=== PATIENT | female | born 1965 | race Caucasian/White ===

== ENCOUNTER 2019-04-28 13:41 | Emergency (ER) | payer OTHER, MEDICAID, SELFPAY ==
--- NOTE | ~2019-04-28 | XR_ITS ---
EXAMINATION: XR shoulder RT min 2V EXAM DATE: 04/28/2019 14:30 INDICATION: Fall, right shoulder pain. TECHNIQUE: The following right shoulder projections obtained: frontal projection with internal rotati on, frontal projection with external rotation, [place], and axillary (4+ views). There is no prior s tudy for comparison. FINDINGS: No evidence of right shoulder rotator cuff calcific tendinosis. There is mild right shou lder primary osteoarthritis. There are no acute fractures or dislocations identified. There is no velasco bcutaneous gas. The soft tissue is unremarkable. There are no radiopaque foreign bodies. IMPRESSION: No acute osseous findings. Reviewed, dictated and finalized at location A. T SPA DESK IMPRESSION: No acute osseous findings.
[2019-04-28 13:56] VITALS: BP 146/91; PULSE 108; RESP 18; TEMP 36.8; O2SAT 100
--- NOTE | 2019-04-28 14:09 | ED.UPPEXIN ---
HPI - Extremity Injury (Upper) General Chief Complaint: Extremity Injury, Upper Stated Complaint: Had Seizures and fell Time Seen by Provider: 04/28/19 14:20 Source: patient and RN notes reviewed Mode of arrival: ambulatory Limitations: no limitations History of Present Illness HPI narrative: 53 year old female who presents to express care with complaints of pain to the anterior aspect of her right shoulder after falling into her cabinet at home last pm, patient states that she just lost her balance denies any other injury at this time or LOC with shoulder injury. Patient states that has an unsteady gait due to previous strokes. Patient states that she was in [facility] last week after a fall in her bathroom where she fell directly into bathroom wall fracturing her nose, thinks she had what her neurologist called a syncopal seizure.. Patient states that she has history of partial epilepsy and last week she doesn't recall falling so family took her to ER at [facility] and she was admitted for a few days. Patient states that she has had problems with her shoulder before but pain was more in posterior aspect of shoulder. MD complaint: injury to: right and shoulder Other Extremity Injury: Right: shoulder Other injuries: none Handedness: right Place: home Relieving factors: rest Exacerbating factors: movement of extremity Context: fall and direct blow Associated symptoms: denies other symptoms Related Data Home Medications Medication Instructions Recorded Confirmed atorvastatin 40 mg PO DAILY 04/28/19 04/28/19 clonazepam [Klonopin] 1 mg PO BID 04/28/19 04/28/19 clopidogrel [Plavix] 75 mg PO DAILY 04/28/19 04/28/19 cyclobenzaprine 10 mg PO QID 04/28/19 04/28/19 duloxetine [Cymbalta] 90 mg PO QAM 04/28/19 04/28/19 lamotrigine [Lamictal] 300 mg PO BID 04/28/19 04/28/19 levothyroxine [Synthroid] 50 mcg PO DAILY 04/28/19 04/28/19 quetiapine [Seroquel] 300 mg PO BID 04/28/19 04/28/19 ramelteon 8 mg PO HS 04/28/19 04/28/19 sumatriptan succinate [Imitrex] 100 mg PO ONCE 04/28/19 04/28/19 thiamine HCl (vitamin B1) 50 mg PO DAILY 04/28/19 04/28/19 Allergies Allergy/AdvReac Type Severity Reaction Status Date / Time amphetamine Allergy Intermediate Unknown Verified 04/28/19 14:25 dextroamphetamine Allergy Intermediate Unknown Verified 04/28/19 14:05 Tetanus Vaccines and Toxoid Allergy Unknown Unknown Verified 04/28/19 14:05 ibuprofen [From Motrin] AdvReac Unknown Verified 04/28/19 14:23 Review of Systems Review of Systems: Narrative: CONSTITUTIONAL: Denies fever, chills, or sweats. EYES: Denies visual changes, redness, or discharge. ENT: Denies rhinorrhea, congestion, sore throat, or otalgia. CARDIOVASCULAR: Denies chest pain, palpitations, or edema. RESPIRATORY: Denies cough or dyspnea. GASTROINTESTINAL: Denies abdominal pain, nausea, vomiting, or diarrhea. GENITOURINARY: Denies dysuria or hematuria. SKIN: Denies rash or itching. MUSCULOSKELETAL: Denies back pain,positive right shoulder anterior aspect of right shoulder. or myalgia. NEUROLOGIC: Denies headache, numbness, or weakness. PSYCHIATRIC: Denies anxiety or depression. All systems reviewed & are unremarkable except as noted in HPI and below PMFSH Past Medical History Medical History (Updated 04/29/19 @ 00:00 by Bertin Daemon) Back pain Bipolar disorder CVA (cerebrovascular accident) Depression Epilepsy Hyperlipidemia Hypothyroid Migraines Pneumonia Social History Social History (Updated 04/28/19 @ 15:08 by Irena Berg NP) Living arrangements: alone Gender identity (if verbalized by the patient): Female Comments At time of signature, agree with nursing past medical, surgical, social and family history. There is no relevant family history pertinent to the presenting complaint Exam Narrative: Exam Narrative: GENERAL: Well-appearing, well-nourished, and in no acute distress. HEAD: Normocephalic, atraumatic. EYES: PERRLA and EOMI. ENT: Na
== END 2019-04-28 14:56 | disposition home or self-care (01) ==
PROVIDERS: Emergency Provider Registered Nurse; PCP Family Medicine
DX: M25.511 Pain in right shoulder (principal); Z86.73 Personal history of transient ischemic attack (TIA), and cerebral infarction without residual deficits; E78.5 Hyperlipidemia, unspecified; G40.909 Epilepsy, unspecified, not intractable, without status epilepticus; E03.9 Hypothyroidism, unspecified; F31.9 Bipolar disorder, unspecified
CPT/HCPCS: 73030; 99213; G0463

== ENCOUNTER 2019-05-14 08:01 | Emergency (ER) | payer OTHER, MEDICAID, SELFPAY ==
--- NOTE | 2019-05-14 08:05 | ED.GENADULT ---
HPI - General Adult General Stated complaint: Severe back pain Time Seen by Provider: 05/14/19 08:13 Source: patient Mode of arrival: ambulatory Limitations: no limitations History of Present Illness HPI narrative: 53-year-old female patient [facility] complaints of right upper back pain. Patient states that she fell about 10 days ago and had a seizure. Patient states that she has been in twice last week for some right shoulder pain. Did have an x-ray and there was no bone abnormalities. Patient states she developed some right upper back pain about 3 days ago. Patient states that she was taking Tylenol threes but ran out. Patient states she also has been taking muscle relaxants have been prescribed to her as well as doing heat. Patient denies any numbness or tingling to the extremities. Denies any loss bowel or bladder control. Related Data Home Medications Medication Instructions Recorded Confirmed atorvastatin 40 mg PO DAILY 04/28/19 04/28/19 clonazepam [Klonopin] 1 mg PO BID 04/28/19 04/28/19 clopidogrel [Plavix] 75 mg PO DAILY 04/28/19 04/28/19 cyclobenzaprine 10 mg PO QID 04/28/19 04/28/19 duloxetine [Cymbalta] 90 mg PO QAM 04/28/19 04/28/19 lamotrigine [Lamictal] 300 mg PO BID 04/28/19 04/28/19 levothyroxine [Synthroid] 50 mcg PO DAILY 04/28/19 04/28/19 quetiapine [Seroquel] 300 mg PO BID 04/28/19 04/28/19 ramelteon 8 mg PO HS 04/28/19 04/28/19 sumatriptan succinate [Imitrex] 100 mg PO ONCE 04/28/19 04/28/19 thiamine HCl (vitamin B1) 50 mg PO DAILY 04/28/19 04/28/19 Allergies Allergy/AdvReac Type Severity Reaction Status Date / Time amphetamine Allergy Intermediate Unknown Verified 04/28/19 14:25 dextroamphetamine Allergy Intermediate Unknown Verified 04/28/19 14:05 Tetanus Vaccines and Toxoid Allergy Unknown Unknown Verified 04/28/19 14:05 ibuprofen [From Motrin] AdvReac Unknown Verified 04/28/19 14:23 Review of Systems Review of Systems: Narrative: CONSTITUTIONAL: Denies fever, chills, or sweats. EYES: Denies visual changes, redness, or discharge. ENT: Denies rhinorrhea, congestion, sore throat, or otalgia. CARDIOVASCULAR: Denies chest pain, palpitations, or edema. RESPIRATORY: Denies cough or dyspnea. GASTROINTESTINAL: Denies abdominal pain, nausea, vomiting, or diarrhea. GENITOURINARY: Denies dysuria or hematuria. SKIN: Denies rash or itching. MUSCULOSKELETAL: Positive right upper back pain, denies joint pain, or myalgia. NEUROLOGIC: Denies headache, numbness, or weakness. PSYCHIATRIC: Denies anxiety or depression. [facility] Past Medical History Medical History Back pain Bipolar disorder CVA (cerebrovascular accident) Depression Epilepsy Hyperlipidemia Hypothyroid Migraines Pneumonia Social History Social History Gender identity (if verbalized by the patient): Female Comments At the time of my signature I agree with nursing past medical history, surgical, social, and family history. There is no relevant family history pertinent to the presenting complaint. Exam Narrative: Exam Narrative: GENERAL: Well-appearing, well-nourished, and in no acute distress. HEAD: Normocephalic, atraumatic. EYES: PERRLA and EOMI. ENT: Nares clear, no rhinorrhea or epistaxis. Mucous membranes moist. NECK: Supple. No lymphadenopathy CHEST: Clear to auscultation. No respiratory distress. HEART: Regular rate and rhythm. No murmur heard. Normal peripheral pulses. ABDOMEN: Soft, nontender, nondistended, normal active bowel sounds. EXTREMITIES: Normal range of motion. No edema. No CVA tenderness on percussion. BACK: Patient is able to ambulated without assistance. Pt is seated on the exam chair in no obvouis distress. No surface trauma noted. muscle tenderness to Palpation around the right scapula with muscle spasm noted on palpation. No step-offs or deformity noted to the cervical, thoracic or lum
[2019-05-14 08:11] VITALS: BP 133/80; PULSE 109; RESP 16; TEMP 37.1; O2SAT 99
== END 2019-05-14 08:51 | disposition home or self-care (01) ==
PROVIDERS: Emergency Provider Nurse Practitioner Family; PCP Family Medicine
DX: M62.830 Muscle spasm of back (principal); F31.9 Bipolar disorder, unspecified; G40.909 Epilepsy, unspecified, not intractable, without status epilepticus; E78.5 Hyperlipidemia, unspecified; E03.9 Hypothyroidism, unspecified
CPT/HCPCS: 99211; G0463

== ENCOUNTER → 2020-01-04 09:16 | Outpatient (CLI) | payer OTHER, MEDICAID, SELFPAY ==
--- NOTE | ~2020-01-04 | XR_ITS ---
XR knee LT min 4V DATE: 01/04/2020 09:40 INDICATION: Left knee contusion, pain TECHNIQUE: [place], crosstable lateral, AP and bilateral oblique views of left knee COMPARISON: 07/24/2017 left lower leg FINDINGS: There is mild periarticular spurring of the patella. There is mild periarticular spurring at the medial compartment. No fracture or dislocation or joint effusion. No periosteal reaction or bone destruction. IMPRESSION: Mild medial compartment and patellofemoral compartment osteoarthritis No fracture or dislocation or joint effusion Reviewed, dictated and finalized at location A. IMPRESSION: Mild medial compartment and patellofemoral compartment osteoarthrit is No fracture or dislocation or joint effusion
== END ==
PROVIDERS: PCP Family Medicine; Visit Provider Family Medicine
DX: M17.12 Unilateral primary osteoarthritis, left knee (principal)
CPT/HCPCS: 73564